=== PATIENT | male | born 1975 | race Caucasian/White ===

== ENCOUNTER 2021-02-07 21:03 | Emergency (ER) | payer OTHER ==
[~2021-02-07] VITALS: Ht 185.4 cm; Wt 95.3 kg
[2021-02-07] MEDS ORDERED: NORVASC10 MG (21:18)
[2021-02-07] MEDS ORDERED: COZAAR100 MG (21:18)
[2021-02-07] MEDS ORDERED: TOPROL XL50 M1 (21:18)
[2021-02-07] MEDS ORDERED: MEDROLPACK PO (23:02)
[2021-02-07] MEDS ORDERED: NORFLEX100MG PO (23:02)
[2021-02-07] MEDS ORDERED: KETO10TA2 PO (23:02)
== END 2021-02-07 22:57 | disposition home or self-care (01) ==
LOC: ER 21:03
DX: S76.112A Strain of left quadriceps muscle, fascia and tendon, initial encounter (principal); M79.652 Pain in left thigh; W01.0XXA Fall on same level from slipping, tripping and stumbling without subsequent striking against object, initial encounter; Y93.01 Activity, walking, marching and hiking; Y92.018 Other place in single-family (private) house as the place of occurrence of the external cause; Y99.8 Other external cause status

== ENCOUNTER 2021-10-13 22:27 | Emergency (ER) | payer OTHER ==
[~2021-10-13] VITALS: Ht 185.4 cm; Wt 96.2 kg
[~2021-10-13 22:27] MED LIST: COZAAR100 MG; KETO10TA2 PO; MEDROLPACK PO; NORFLEX100MG PO; NORVASC10 MG; TOPROL XL50 M1
[2021-10-13] MEDS ORDERED: TRAMADOL HCL50 MG PO (22:40)
[2021-10-13] MEDS ORDERED: GABAPENTIN800 M1 PO (22:41)
[2021-10-13] MEDS ORDERED: CLONAZEPAM2 MG PO (22:42)
[2021-10-13] MEDS ORDERED: BUPROPION HCL200 MG PO (22:42)
[2021-10-13] MEDS ORDERED: DICLOFENAC SODI75 MG PO (22:43)
[2021-10-13] MEDS ORDERED: NORFLEX100MG PO (22:43)
== END 2021-10-13 22:56 | disposition home or self-care (01) ==
LOC: ER 22:27
DX: M54.50 Low back pain, unspecified (principal); I10 Essential (primary) hypertension